=== PATIENT | male | born 1995 | race Caucasian/White ===

== ENCOUNTER 2018-01-31 15:54 | Emergency (ER) | payer BC, OTHER ==
--- NOTE | 2018-01-31 16:12 | EDM.PDOC ---
ED HPI GENERAL MEDICAL PROBLEM - General Chief Complaint: Lower Extremity Injury/Pain Stated Complaint: RIGHT ANKLE INJURY Time Seen by Provider: 01/31/18 16:06 Source of Information: Reports: Patient, Significant Other (Girlfriend) History Limitations: Reports: No Limitations - History of Present Illness INITIAL COMMENTS - FREE TEXT/NARRATIVE: The patient states that he rolled his right foot inward around 14:00, as he was getting out of his truck. He is otherwise uninjured. No prior right ankle injury. The patient does not have a PCP. Treatments DENTAL DETAIL REPRESENTATIVE: Reports: Other (see below) Other Treatments DENTAL DETAIL REPRESENTATIVE: ice Right Ankle Pain Score (Numeric/FACES): 10 - Related Data Allergies Allergy/AdvReac Type Severity Reaction Status Date / Time No Known Allergies Allergy Verified 01/31/18 16:03 Home Meds: Home Meds . [No Known Home Meds] 01/31/18 [History] Past Medical History - Past Health History Medical/Surgical History: Denies Medical/Surgical History Social & Family History - Tobacco Use Smoking Status *Q: Current Every Day Smoker Years of Tobacco use: 4 Packs/Tins Daily: 0.5 - Caffeine Use Caffeine Use: Reports: Coffee, Soda, Tea - Recreational Drug Use Recreational Drug Use: No - Living Situation & Occupation Living situation: Reports: with Significant Other (Girlfriend), with Family ( Mother, brother) Occupation: Employed ([employer]) Review of Systems - Review of Systems Review Of Systems: ROS reveals no pertinent complaints other than HPI. ED EXAM, GENERAL - Physical Exam Exam: See Below Exam Limited By: No Limitations General Appearance: Alert, WD/WN, No Apparent Distress Extremities: Other (Mild to moderate swelling over the lateral malleolus of the right ankle, with minimal ecchymosis. No abrasion or other visible injury. There is tenderness to the area of swelling, but no tenderness to the anterior or posterior syndesmosis or medial malleolus. The right foot is in normal anatomic position. Neurovascular status of the right lower extremity is intact.) Course - Vital Signs Last Recorded V/S: Last Vital Signs Temp 36.7 C 01/31/18 16:05 Pulse 72 01/31/18 16:05 Resp 20 01/31/18 16:05 BP 113/92 H 01/31/18 16:05 Pulse Ox 98 01/31/18 16:05 - Orders/Labs/Meds Orders: Active Orders 24 hr Category Date Time Status Ankle Min 3V Rt [CR] Stat Exams 01/31/18 16:11 Taken DME for Discharge [COMM] Stat Oth 01/31/18 16:37 Ordered - Re-Assessments/Exams Free Text/Narrative Re-Assessment/Exam: 01/31/18 16:11 The patient was offered pain medication, but declined. 01/31/18 16:36 4 view radiographs of the right ankle appear to be normal. No fracture or dislocation identified. Formal read per the Radiologist pending. 01/31/18 16:37 The patient appears to have a grade [address] him into an Aircast. Departure - Departure Time of Disposition: 16:49 Disposition: Home, Self-Care 01 Condition: Good Clinical Impression: Right ankle sprain - Discharge Information Instructions: Ankle Sprain, [id number] Referrals: PCP,None [Primary Care Provider] - Broderick Price MD [Physician] - Forms: ED Department Discharge Additional Instructions: You were seen in the emergency room after rolling your right foot while getting out of your car. Workup in the ER included x-rays of your right ankle, which were normal. You have sprained your right ankle. You have been placed into an Aircast. Apply this each morning and remove at bedtime. Wear it for a week, before walking without it. Elevate and ice your right ankle as much as possible over the next 2 days, to minimize swelling. Take [id number]-[id number] ibuprofen, 2-3 tablets (400-600 mg) every 8 hours, with food, as needed for discomfort. If you still have discomfort to the ankle after 2 weeks, please follow-up with the Orthopedic Surgeon Dr. Price. If any other problems, please do not hesitate to return to the ER. - My Orders Last 24 Hours: My Active Orders 01/31/18 16:11 Ankle Min 3V Rt [CR] Stat 01/31/18 16:37 DME for Discharge [COMM] Stat - Assessment/Plan Last 24 Hours: My Active Orders 01/31/18 16:11 Ankle Min 3V Rt [CR] Stat 01/31/18 16:37 DME for Discharge [COMM] Stat
--- NOTE | 2018-02-03 07:49 | CR ---
Right ankle: Four views of the right ankle were obtained. Comparison: No previous ankle study. Soft tissue swelling is identified. Ankle mortise is symmetric. No acute fracture, dislocation or other bony abnormality is seen. Impression: 1. Soft tissue swelling. 2. No acute bony abnormality is identified on right ankle exam. Diagnostic code #2
== END 2018-01-31 17:04 | disposition home or self-care (01) ==
LOC: JD.ED 15:54
DX: S93.401A Sprain of unspecified ligament of right ankle, initial encounter (principal); F17.210 Nicotine dependence, cigarettes, uncomplicated; X50.0XXA Overexertion from strenuous movement or load, initial encounter
CPT/HCPCS: 73610-26-RT; 73610-RT; 99283; 99284

== ENCOUNTER 2022-08-23 19:47 | Emergency (ER) | payer OTHER ==
[2022-08-23] MEDS ORDERED: HYDROmorphone 0.5 MG/0.5 ML Syringe IVPUSH ONE ×2 (19:52→23:17)
[2022-08-23] MEDS: Sodium Chloride 0.9% 10 ML Syringe FLUSH PRN ×2 (20:02→20:55)
[2022-08-23 20:40] LABS: ESTIMATED GFR 106 mL/min (>60)
[2022-08-23] MEDS ORDERED: Sodium Chloride 0.9% 10 ML Syringe FLUSH PRN (20:54)
[2022-08-23] MEDS ORDERED: Iopamidol 755 Mg/ML 100 ML Bottle IVPUSH ONE (20:54)
== END 2022-08-24 00:11 | disposition home or self-care (01) ==
LOC: JD.ED 19:47
DX: S39.012A Strain of muscle, fascia and tendon of lower back, initial encounter (principal); R07.89 Other chest pain; V89.2XXA Person injured in unspecified motor-vehicle accident, traffic, initial encounter; Y92.410 Unspecified street and highway as the place of occurrence of the external cause
CPT/HCPCS: 36415; 71260; 74177; 80053; 80307; 83690; 85025; 96374; 96376; 99285; J1170; J3490; Q9967

== ENCOUNTER 2022-08-30 11:31 | Emergency (ER) | payer OTHER | END 2022-08-30 14:01 | disposition home or self-care (01) | LOC: JD.ED 11:31 | DX: S13.4XXA Sprain of ligaments of cervical spine, initial encounter (principal); J45.909 Unspecified asthma, uncomplicated; V43.52XA Car driver injured in collision with other type car in traffic accident, initial encounter; Y92.410 Unspecified street and highway as the place of occurrence of the external cause | CPT/HCPCS: 72125; 72125-26; 99284 ==

== ENCOUNTER 2023-04-14 21:05 | Emergency (ER) | payer SELFPAY | END 2023-04-14 23:36 | disposition home or self-care (01) | LOC: JD.ED 21:05 | DX: S62.306A Unspecified fracture of fifth metacarpal bone, right hand, initial encounter for closed fracture (principal); J45.909 Unspecified asthma, uncomplicated; W22.8XXA Striking against or struck by other objects, initial encounter | CPT/HCPCS: 29125; 73110-26-RT; 73110-RT; 73130-26-RT; 73130-RT; 99283 ==